=== PATIENT | female | born 1985 | race Two or more races ===

== ENCOUNTER 2024-09-09 22:59 | Emergency (ER) | payer MEDICAID, SELFPAY ==
[2024-09-09 23:00] VITALS: BMI 48.2
[2024-09-09 23:07] VITALS: BP 141/84; PULSE 104; RESP 18; TEMP 37.3; O2SAT 96
[2024-09-09] MEDS: DIAZEPAM 5 MG TABLET 10 MG PO (23:37)
[2024-09-10 00:12] LABS: Collection Type, Urine Clean Catch
--- NOTE | 2024-09-10 00:27 | PD.EDANX ---
ED Anxiety RME/HPI General Chief Complaint: General Adult/Misc Complain Stated Complaint: DOESNT FEEL NORMAL Time Seen by Provider: 09/09/24 23:13 Arrival date/time: 09/09/24 22:59 38F with history of anxiety (though undiagnosed) presents to ED with 1 day of not feeling normal. Symptoms including ab pain, dizziness, cough, body tingling/numbness and N/V. Separately, patient states she's been trying to have a baby for 9 years and is late on a period and would like a test. Limitations: no limitations Related Data Previous Rx's ?Medication ?Instructions ?Recorded acetaminophen 500 mg capsule 500 mg PO Q6H PRN pain #20 caps 06/12/18 prednisone 50 mg tablet 50 mg PO QDAY #5 tabs 06/12/18 ibuprofen 800 mg tablet 800 mg PO TID #30 tabs 03/07/19 ibuprofen 800 mg tablet 800 mg PO TID PRN pain #30 tabs 07/29/22 Allergies Allergy/AdvReac Type Severity Reaction Status Date / Time No Known Allergies Allergy Verified 09/09/24 23:02 Review of Systems Review of Systems Systems Reviewed: All systems reviewed, normal except as documented Constitutional Constitutional: Reports system reviewed and no additional complaints, except as documented, Denies fever(s) and Denies headache(s) ENT Ears, Nose, Mouth, and Throat: Denies disequilibrium and Denies headache(s) Cardiovascular Cardiovascular: Reports system reviewed and no additional complaints, except as documented, Denies chest pain and Denies dyspnea Respiratory Respiratory: Reports system reviewed and no additional complaints, except as documented, Reports as per HPI, Reports cough and Denies dyspnea Gastrointestinal Gastrointestinal: Reports system reviewed and no additional complaints, except as documented, Reports as per HPI, Reports abdominal pain, Reports nausea and Reports vomiting Musculoskeletal Musculoskeletal: Reports numbness and Reports tingling Neurologic Neurologic: Reports system reviewed and no additional complaints, except as documented, Reports as per HPI, Denies confusion, Denies disequilibrium, Denies headache(s), Reports numbness and Reports tingling Psychiatric Psychiatric: Denies confusion Past Medical History Past Medical History CARDIAC: Negative Congestive Heart Failure RESPIRATORY: Negative Chronic Obstructive Pulmonary Disease (COPD) GENITOURINARY: Negative Renal Disease ENDOCRINE: Negative Diabetes Mellitus Type 1 or Diabetes Mellitus Type 2 Social History SMOKING STATUS: Never smoker ED Exam General Limitations: Present no limitations General appearance: Present alert, in no apparent distress and anxious Head Head exam: Present atraumatic Eye Eye exam: Present normal appearance, PERRL and EOMI ENT ENT exam: Present normal exam, normal oropharynx and mucous membranes moist Neck Neck exam: Present normal inspection, full ROM and trachea midline Chest Chest inspection: Present normal inspection and symmetric chest wall rise Respiratory Respiratory exam: Present normal lung sounds bilaterally Cardiovascular Cardiovascular exam: Present regular rate, normal rhythm and normal heart sounds Abdominal Exam Abdominal exam: Present soft and normal bowel sounds Extremities Exam Extremities exam: Present normal inspection and full ROM Back Exam Back exam: Present normal inspection and full ROM Neurological Exam Neurological exam: Present alert, oriented X3 and CN II-XII intact Psychiatric Psychiatric exam: Present normal affect and normal mood Skin Skin exam: Present warm, dry, intact and normal color Course Quality Measures none Orders Category Date Time Status Drug Screen,Urine Stat Lab 09/10/24 00:00 Received HCG Qualitative,Urine Stat Lab 09/10/24 00:00 Received Urinalysis, C/S if Indicated Stat Lab 09/10/24 00:00 Received Diazepam [Valium] Med 09/09/24 23:14 Discontinued 10 mg PO X1 ONE Vital Signs Vital signs: Vital Signs Temperature 99.1 F 09/09/24 23:07 Pulse Rate 104 H 09/09/24 23:07 Respiratory Rate 18 09/09/24 23:07 Blood Pressure 141/84 H 09/09/24 23:07 Pulse Oximetry (%) 96 09/09/24 23:07 Oxygen Delivery Method Room Air 09/09/24 23:07 Anxiety MDM Narrative MDM Narrative: 38F with history of anxiety (though undiagnosed) presents to ED with 1 day of not feeling normal. Symptoms including ab pain, dizziness, cough, body tingling/numbness and N/V. Separately, patient states she's been trying to have a baby for 9 years and is late on a period and would like a test. Physical exam reveals normal pupil response and EOM. CN II-XII grossly intact. Clear lungs. Normal WOB. Gait normal. Patient is afebrile, alert, but anxious. Meds relieved symptoms. HCG +, which was patient was very excited for. Patient data External records reviewed:: [facility] previous records Clinical information provided by:: patient Social determinants that could affect healthcare access:: none Patient has the following chronic illnesses:: none How is presenting disease/condition affected by chronic disease/condition?: no chronic disease Evaluation data The following diagnostics were reviewed and interpreted by me:: lab results Lab and/or radiology exams considered but not ordered:: ordered Interpretation Summary: above Medications / Prescriptions Medications or Prescriptions considered but not ordered:: ordered Medication administrations:: Medication Administration History Discontinued Medications Diazepam (Diazepam 5 Mg Tablet) 10 mg PO X1 ONE Stop: 09/09/24 23:15 Last Admin: 09/09/24 23:37 Dose: 10 mg Documented By: Consultations Consultation(s) initiated? (list below): No Diagnosis Differential diagnosis anxiety: hyperventilation, panic disorder, acute anxiety and other (stress reaction and currently ) Most likely diagnosis given after review of the tests above:: stress reaction and currently Admission Indicated Admission indicated?: not indicated Admission Request Was there a request for admission?: No Disposition Plan Disposition Plan: Discharge Discharge Attestation Discharge Attestation: The patient and all family members were given an opportunity to ask questions and understood the discharge instructions. Discharge instructions specifically effects, indications for sooner follow up or return to the emergency department, and the expected course of current diagnosis. Patient condition: Stable Discharge Plan Plan Patient Disposition: HOME (Self Care) Discharge Disposition comment: Stable Prescriptions/Referrals Prescriptions/Med Rec: No Action prednisone 50 mg tablet 50 mg PO QDAY Qty: 5 0RF acetaminophen 500 mg capsule 500 mg PO Q6H PRN (Reason: pain) Qty: 20 0RF ibuprofen 800 mg tablet 800 mg PO TID Qty: 30 0RF ibuprofen 800 mg tablet 800 mg PO TID PRN (Reason: pain) Qty: 30 0RF Referrals: Lakeisha Aranda PA-C [Primary Care Provider] - In 1 week Problem List Clinical Impression: Stress reaction, Currently Patient/Caregiver Discharge Instructions Education Materials: Your Body's Response to Anxiety, First Trimester Additional Instructions: Please follow-up with PCP/OBGYN within 24-48 hours and return immediately if symptoms worsen. Print Language: [place] Stand Alone Forms: Patient Portal Info Letter WEST/JHONY Supervising Physician SOPHIE Supervising Physician: Dr. Bermudez
[2024-09-10 00:41] LABS: Amphetamine/Methamp Scrn,U Negative (Negative); Barbiturate Screen,Urine Negative (Negative); Benzodiazepines Screen,Urine Negative (Negative); Benzoylecgonine Screen, Ur Negative (Negative); Fentanyl Screen,Urine Negative (Negative); Opiate Screen,Urine Negative (Negative); THC Screen,Urine Negative (Negative)
[2024-09-10 01:00] LABS: HCG Qualitative,Urine Positive
[2024-09-10 01:10] LABS: Bilirubin,Urine 1+ (Negative); Blood,Urine Negative (Negative); Budding Yeast,Urine Present; Clarity,Urine Turbid (Clear/Hazy); Color,Urine Yellow (Lt Yel-Yel); Culture Indicated,Urine Not Indicated; Glucose, Urine Trace (Negative); Ketones,Urine Trace (Negative); Leukocyte Esterase,Urine Positive (Negative); Nitrite,Urine Negative (Negative); Protein,Urine 1+ (Neg - Trace); RBC,Urine 3 /hpf (0-3); Squamous Epithelial Cell,Urine 68 /hpf (0-5); WBC,Urine 3 /hpf (0-5)
== END 2024-09-10 01:38 | disposition home or self-care (01) ==
PROVIDERS: Physician Assistant; Emergency Provider Emergency Medicine; PCP Physician Assistant
DX: O99.340 Other mental disorders complicating pregnancy, unspecified trimester (principal); F43.9 Reaction to severe stress, unspecified; Z3A.00 Weeks of gestation of pregnancy not specified
CPT/HCPCS: 80307; 81001; 81025; 99283; A9270

== ENCOUNTER 2024-09-15 09:53 | Emergency (ER) | payer MEDICAID, SELFPAY ==
[2024-09-15 09:59] VITALS: BP 143/78; PULSE 109; RESP 18; TEMP 36.8; O2SAT 99; BMI 48.2
--- NOTE | 2024-09-15 10:06 | XR_ITS ---
Examination: OB Transvaginal ultrasound of the pelvis, complete Technique: Transvaginal sonographic images pelvis performed using worthy scale imaging Exam date and time: September 15, 2024 1050 hours INDICATIONS: Positive test last week with pelvic cramping beginning 2 days ago FINDINGS: Uterus 9.5 cm, pole 1.1 cm corresponds to 7 weeks 2 days gestational age Cardiac motion 153 BPM Adjacent subchorionic hemorrhage 10 x 12 x 8 mm Right ovary 2.3 cm arterial flow 17 mm x 15 mm cyst with internal echoes Left ovary obscured by bowel gas IMPRESSION: Viable intrauterine gestation 7 weeks 2 days Consider short-term follow-up pelvic sonography given the subchorionic hemorrhage.
[2024-09-15 10:46] LABS: Basophils % (Auto) 0 % (0-2.5); Eosinophils # (Auto) 0.2 Thou/mm3 (0.0-0.5); Eosinophils % (Auto) 2 % (0-10); Hematocrit 35.5 % (36.0-46.0); Immature Granulocytes % (Auto) 0 % (0-0); Immature Granulocytes Auto 0.02 Thou/mm3 (0.00-0.00); Lymphocytes # (Auto) 2.7 Thou/mm3 (1.0-4.8); Lymphocytes % (Auto) 29 % (10-50); Mean Corpuscular HGB Conc 33.8 g/dl (31.0-37.0); Mean Corpuscular Hemoglobin 28.8 pg (25.0-35.0); Mean Corpuscular Volume 85 fL (80-100); Monocytes # (Auto) 0.7 Thou/mm3 (0.0-0.8); Monocytes % (Auto) 7 % (0-12); Neutrophils # (Auto) 5.7 Thou/mm3 (1.8-7.7); Neutrophils % (Auto) 61 % (37-80); Nucleated Red Blood Cell % 0 /100 WBC (0); Platelet Count 271 Thou/mm3 (140-440); RDW Standard Deviation 42.8 fL (36.4-46.3); Red Blood Count 4.17 Miln/mm3 (4.00-5.20); White Blood Count 9.3 Thou/mm3 (3.6-11.0)
[2024-09-15 11:22] LABS: Alanine Aminotransferase 10 U/L (10-49); Albumin, Serum 3.9 gm/dL (3.5-5.0); Albumin/Globulin Ratio 1.3 (1.2-2.2); Alkaline Phosphatase 71 U/L (46-116); Anion Gap 11 (7-16); Aspartate Amino Transferase 12 U/L (0-34); BUN/Creatinine Ratio 11 Ratio (12-20); Bilirubin,Total 0.4 mg/dL (0.3-1.2); Blood Urea Nitrogen 9 mg/dL (9-23); Calcium 8.4 mg/dL (8.3-10.6); Calcium (Corrected) 8.5 mg/dL (8.5-10.1); Carbon Dioxide 21.2 mMol/L (20.0-31.0); Chloride 105 mMol/L (98-107); Creatinine (Component) 0.8 mg/dL (0.6-1.3); Estimated Creatinine Clearance 133.2 mL/min (>60); Globulin 2.9 gm/dL (2.3-3.5); Glucose 101 mg/dL (74-106); Osmolality,Calculated 272 (275-295); Potassium 3.7 mMol/L (3.4-5.1); Sodium 137 mMol/L (136-145); Total Protein 6.8 gm/dL (5.7-8.2); eGFR > 60 See Note
[2024-09-15 11:36] LABS: Beta HCG,Quantitative 61889 mIU/mL (<5.0)
[2024-09-15 11:54] LABS: Collection Type, Urine Clean Catch
[2024-09-15 12:06] LABS: Bacteria,Urine Rare; Bilirubin,Urine Negative (Negative); Blood,Urine Negative (Negative); Color,Urine Yellow (Lt Yel-Yel); Culture Indicated,Urine Not Indicated; Glucose, Urine Negative (Negative); Hyaline Casts,Urine < 1 /hpf (0-1); Ketones,Urine Negative (Negative); Leukocyte Esterase,Urine Negative (Negative); Nitrite,Urine Negative (Negative); Protein,Urine Trace (Neg - Trace); RBC,Urine 4 /hpf (0-3); Specific Gravity,Urine 1.034 (1.001-1.035); Squamous Epithelial Cell,Urine 16 /hpf (0-5); WBC,Urine 2 /hpf (0-5)
[2024-09-15 12:13] LABS: Clarity,Urine Hazy (Clear/Hazy)
--- NOTE | 2024-09-15 12:28 | EDNOTE_ITS ---
ED Back Injury Pain RME/HPI General Chief Complaint: Back Pain/Injury Stated Complaint: Cramping, back pain (recently ) Time Seen by Provider: 09/15/24 09:55 Arrival date/time: 09/15/24 09:53 38-year-old female presents to the emergency department today for complaints of pelvic pain and lower back pain patient reports no fever nausea or vomiting. Patient reports no saddle esthesia no loss of bowel or bladder patient walks with steady gait patient does report she is Limitations: no limitations Related Data Previous Rx's ?Medication ?Instructions ?Recorded acetaminophen 500 mg capsule 500 mg PO Q6H PRN pain #2 0 caps 06/12/18 prednisone 50 mg tablet 50 mg PO QDAY #5 tabs ibuprofen 800 mg tablet 800 mg PO TID #30 tabs 03/07 ibuprofen 800 mg tablet 800 mg PO TID PRN pain #30 t abs 07/29/22 Allergies Allergy/AdvReac Type Severity Reaction Status Date / Time No Known Allergies Allergy Verified 09/15/24 09:55 Review of Systems Review of Systems Systems Reviewed: All systems reviewed, normal except as documented Constitutional Constitutional: Reports system reviewed and no additional complaints, except as documented, Denies fever(s) and Denies headache(s) Eyes Eyes: Reports system reviewed and no additional complaints, except as documented and Denies blurry vision ENT Ears, Nose, Mouth, and Throat: Reports system reviewed and no additional complaints, except as documented, Denies headache(s), Denies nasal congestion and Denies nasal discharge Cardiovascular Cardiovascular: Reports system reviewed and no additional complaints, except as documented, Denies chest pain and Denies dyspnea Respiratory Respiratory: Reports system reviewed and no additional complaints, except as documented, Denies chest congestion, Denies cough and Denies dyspnea Gastrointestinal Gastrointestinal: Reports system reviewed and no additional complaints, except as documented and Denies abdominal pain Genitourinary Genitourinary: Reports system reviewed and no additional complaints, except as documented, Denies flank pain and Reports pelvic pain Musculoskeletal Musculoskeletal: Reports system reviewed and no additional complaints, except as documented and Reports back pain Integumentary/Breasts Skin/Breast: Reports system reviewed and no additional complaints, except as documented and Denies rash Neurologic Neurologic: Reports system reviewed and no additional complaints, except as documented, Reports as per HPI and Denies headache(s) Past Medical History Past Medical History CARDIAC: Negative Congestive Heart Failure RESPIRATORY: Negative Chronic Obstructive Pulmonary Disease (COPD) GENITOURINARY: Negative Renal Disease ENDOCRINE: Negative Diabetes Mellitus Type 1 or Diabetes Mellitus Type 2 Social History SMOKING STATUS: Never smoker ED Exam General Limitations: Present no limitations General appearance: Present alert and in no apparent distress Head Head exam: Present atraumatic, normocephalic and normal inspection Eye Eye exam: Present normal appearance, PERRL and EOMI; Absent conjunctival injection ENT ENT exam: Present normal exam, normal oropharynx and mucous membranes moist Neck Neck exam: Present normal inspection, full ROM and trachea midline Chest Chest inspection: Present normal inspection and symmetric chest wall rise Respiratory Respiratory exam: Present normal lung sounds bilaterally; Absent respiratory distress Cardiovascular Cardiovascular exam: Present regular rate, normal rhythm and normal heart sounds Abdominal Exam Abdominal exam: Present soft and normal bowel sounds; Absent distention, tenderness, guarding, rebound or rigidity Extremities Exam Extremities exam: Present normal inspection and full ROM Back Exam Back exam: Present normal inspection and full ROM Neurological Exam Neurological exam: Present alert, oriented X3 and CN II-XII intact Psychiatric Psychiatric exam: Present normal affect and normal mood Skin Skin exam: Present warm, dry, intact and normal color Course Quality Measures none Orders Category Date Time Status US OB transvaginal Stat Exams 09/15/24 10:06 Completed ABO/RH Type Stat Lab 09/15/24 10:36 Completed Beta HCG,Quantitative Stat Lab 09/15/24 10:36 Completed CBC Stat Lab 09/15/24 10:36 Completed Comprehensive Metabolic Panel Stat Lab 09/15/24 10:36 Completed UA, C/S IF [Urinalysis, C/S if Indicated] Stat Lab 09/15/24 11:45 Completed Vital Signs Vital signs: Vital Signs Temperature 98.2 F 09/15/24 09:59 Pulse Rate 109 H 09/15/24 09:59 Respiratory Rate 18 09/15/24 09:59 Blood Pressure 143/78 H 09/15/24 09:59 Pulse Oximetry (%) 99 09/15/24 09:59 Oxygen Delivery Method Room Air 09/15/24 09:59 O2 saturation 99% on room air within normal limits Back Pain / Injury MDM Narrative MDM Narrative:: 38-year-old female presents to the emergency department today for complaints of pelvic pain and lower back pain patient reports no fever nausea or vomiting. Patient reports no saddle esthesia no loss of bowel or bladder patient walks with steady gait patient does report she is On exam patient well-appearing patient does not appear toxic no acute distress Lab work and imaging obtained no acute emergent findings noted Patient appears to have viable at this time Patient discharged home in no distress to follow-up with primary care doctor in the next 24 to 48 hours and for any worsening symptoms to return to the ER immediately Patient data External records reviewed:: [facility] previous records Clinical information provided by:: patient Social determinants that could affect healthcare access:: none Patient has the following chronic illnesses:: None How is presenting disease/condition affected by chronic disease/condition?: no chronic disease Evaluation data The following diagnostics were reviewed and interpreted by me:: other (specify) (N/A) Lab and/or radiology exams considered but not ordered:: Consider not ordered Interpretation Summary: N/A Medications / Prescriptions Medications or Prescriptions considered but not ordered:: Given Medication administrations:: Given Consultations Consultation(s) initiated? (list below): No Diagnosis Differential diagnosis back pain/injury: lumbar radiculopathy, strain of lumbar region, renal colic and pyelonephritis Most likely diagnosis given after review of the tests above:: Back pain Admission Indicated Admission indicated?: not indicated Admission Request Was there a request for admission?: No Disposition Plan Disposition Plan: Discharge Discharge Attestation Discharge Attestation: The patient and all family members were given an opportunity to ask questions and understood the discharge instructions. Discharge instructions specifically effects, indications for sooner follow up or return to the emergency department, and the expected course of current diagnosis. Patient condition: Stable Discharge Plan Plan Patient Disposition: HOME (Self Care) Discharge Disposition comment: stable Prescriptions/Referrals Prescriptions/Med Rec: No Action prednisone 50 mg tablet 50 mg PO QDAY Qty: 5 0RF acetaminophen 500 mg capsule 500 mg PO Q6H PRN (Reason: pain) Qty: 20 0RF ibuprofen 800 mg tablet 800 mg PO TID Qty: 30 0RF ibuprofen 800 mg tablet 800 mg PO TID PRN (Reason: pain) Qty: 30 0RF Referrals: Lakeisha Aranda PA-C [Primary Care Provider] - 09/16/24 Problem List Clinical Impression: Subchorionic bleed Patient/Caregiver Discharge Instructions Education Materials: Bleeding During Early Additional Instructions: Please follow up with your primary care doctor in the next 24-48hrs for any worsening symptoms return here immediately Print Language: Turkmen Stand Alone Forms: Lara Award Info., Patient Portal Info Letter PA/BORING MACHINE OPERATOR DOUBLE END Supervising Physician PA/BORING MACHINE OPERATOR DOUBLE END Supervising Physician: dr cheek
== END 2024-09-15 12:51 | disposition home or self-care (01) ==
PROVIDERS: Nurse Practitioner Primary Care; Emergency Provider Emergency Medicine; PCP Physician Assistant
DX: O20.9 Hemorrhage in early pregnancy, unspecified (principal); Z3A.01 Less than 8 weeks gestation of pregnancy
CPT/HCPCS: 36415; 76817; 80053; 81001; 84702; 85025; 86900; 86901; 99284

== ENCOUNTER 2024-10-13 16:10 | Emergency (ER) | payer MEDICAID, SELFPAY ==
[2024-10-13 16:23] VITALS: BP 131/85; PULSE 109; RESP 18; TEMP 37; O2SAT 98; BMI 52.0
--- NOTE | 2024-10-13 16:42 | EDRME_ITS ---
Rapid Medical Screening Exam RME Arrival date/time: 10/13/24 16:10 38-year-old female with no known medical history presents to the emergency room with a chief complaint of abdominal cramping. Patient is currently 11 weeks . Patient states she was getting an ultrasound in [place] and they were unable to hear the heartbeat. I have greeted and performed a focused initial assessment of this patient. A comprehensive ED assessment and evaluation of the patient, analysis of all test results, and completion of the medical decision making process will be conducted by additional ED providers. Chief Complaint: OB/Uterine Contractions Time Seen by Provider: 10/13/24 16:26 Vital signs: Vital Signs Temperature 98.6 F 10/13/24 16:23 Pulse Rate 109 H 10/13/24 16:23 Respiratory Rate 18 10/13/24 16:23 Blood Pressure 131/85 H 10/13/24 16:23 Pulse Oximetry (%) 98 10/13/24 16:23 Oxygen Delivery Method Room Air 10/13/24 16:23 Vital signs reviewed by provider: Yes
--- NOTE | 2024-10-13 16:42 | XR_ITS ---
Examination: Complete OB ultrasound, less than 14 weeks, transabdominal Date and time of exam: October 13, 2024, 1711 hours INDICATIONS: No heart tones on ultrasound examination earlier today Technique: Obstetrical ultrasound images less than 14 weeks performed via transabdominal imaging Findings: Uterus 10.6 cm, pole 2.8 cm corresponds to 9 weeks 4 days gestational age No cardiac motion Right ovary 2.1 cm arterial flow Left ovary obscured by bowel gas IMPRESSION: demise
[2024-10-13 17:09] LABS: Collection Type, Urine Clean Catch; RBC,Urine 0 /hpf (0-3); WBC,Urine 0 /hpf (0-5)
[2024-10-13 17:16] LABS: Basophils # (Auto) 0.1 Thou/mm3 (0.0-0.2); Basophils % (Auto) 1 % (0-2.5); Eosinophils # (Auto) 0.3 Thou/mm3 (0.0-0.5); Eosinophils % (Auto) 3 % (0-10); Hematocrit 36.9 % (36.0-46.0); Hemoglobin 12.5 g/dL (12.0-16.0); Immature Granulocytes Auto 0.02 Thou/mm3 (0.00-0.00); Lymphocytes # (Auto) 2.0 Thou/mm3 (1.0-4.8); Lymphocytes % (Auto) 19 % (10-50); Mean Corpuscular HGB Conc 33.9 g/dl (31.0-37.0); Mean Corpuscular Hemoglobin 28.9 pg (25.0-35.0); Mean Corpuscular Volume 85 fL (80-100); Monocytes # (Auto) 0.5 Thou/mm3 (0.0-0.8); Monocytes % (Auto) 5 % (0-12); Neutrophils # (Auto) 7.6 Thou/mm3 (1.8-7.7); Neutrophils % (Auto) 72 % (37-80); Nucleated Red Blood Cell # 0.00 Thou/mm3 (0.00-0.00); Nucleated Red Blood Cell % 0 /100 WBC (0); Platelet Count 287 Thou/mm3 (140-440); RDW Standard Deviation 43.5 fL (36.4-46.3); Red Blood Count 4.33 Miln/mm3 (4.00-5.20); White Blood Count 10.5 Thou/mm3 (3.6-11.0)
[2024-10-13 17:41] LABS: Alanine Aminotransferase 7 U/L (10-49); Albumin, Serum 4.1 gm/dL (3.5-5.0); Albumin/Globulin Ratio 1.2 (1.2-2.2); Alkaline Phosphatase 71 U/L (46-116); Anion Gap 8 (7-16); Aspartate Amino Transferase 14 U/L (0-34); BUN/Creatinine Ratio 11 Ratio (12-20); Bilirubin,Total 0.4 mg/dL (0.3-1.2); Blood Urea Nitrogen 10 mg/dL (9-23); Calcium 9.5 mg/dL (8.3-10.6); Calcium (Corrected) 9.5 mg/dL (8.5-10.1); Carbon Dioxide 22.6 mMol/L (20.0-31.0); Chloride 108 mMol/L (98-107); Creatinine (Component) 0.9 mg/dL (0.6-1.3); Estimated Creatinine Clearance 119.8 mL/min (>60); Globulin 3.4 gm/dL (2.3-3.5); Glucose 102 mg/dL (74-106); Osmolality,Calculated 276 (275-295); Potassium 4.3 mMol/L (3.4-5.1); Sodium 139 mMol/L (136-145); Total Protein 7.5 gm/dL (5.7-8.2); eGFR > 60 See Note
[2024-10-13 17:51] LABS: Beta HCG,Quantitative 6204 mIU/mL (<5.0)
[2024-10-13 18:01] LABS: Bacteria,Urine Rare; Bilirubin,Urine 1+ (Negative); Blood,Urine Negative (Negative); Clarity,Urine Turbid (Clear/Hazy); Color,Urine Yellow (Lt Yel-Yel); Glucose, Urine Negative (Negative); Ketones,Urine Trace (Negative); Leukocyte Esterase,Urine Negative (Negative); Nitrite,Urine Negative (Negative); PH,Urine 6.0 (5.0-7.0); Protein,Urine 1+ (Neg - Trace); Specific Gravity,Urine 1.040 (1.001-1.035); Squamous Epithelial Cell,Urine 10 /hpf (0-5); Urobilinogen,Urine 3.0 mg/dL (0.0-1.0)
[2024-10-13 18:54] VITALS: BP 148/82; PULSE 100; RESP 18; TEMP 36.7; O2SAT 98
--- NOTE | 2024-10-13 19:03 | PD.EDPREG ---
ED OB Contraction Preg RMI/HPI General Chief complaint: OB/Uterine Contractions Stated complaint: NO HEARTBEAT Time Seen by Provider: 10/13/24 16:26 Source: patient Arrival date/time: 10/13/24 16:10 Mode of arrival: ambulatory Limitations: no limitations RME / HPI RME / HPI Narrative: 10/13/24 16:10 38-year-old female with no known medical history presents to the emergency room with a chief complaint of abdominal cramping. Patient is currently 11 weeks . Patient states she was getting an ultrasound in [place] and they were unable to hear the heartbeat. I have greeted and performed a focused initial assessment of this patient. A comprehensive ED assessment and evaluation of the patient, analysis of all test results, and completion of the medical decision making process will be conducted by additional ED providers. Dr. Nix?s Main ED Evaluation: 38-year-old female with no significant past medical history presents to the Emergency Department with a chief complaint of abdominal cramping. She reports she is currently 11 weeks . Earlier today, the patient underwent an ultrasound at an outpatient facility in [place], where she was informed that they were unable to detect a heartbeat. This finding prompted her visit to the ED for further evaluation and confirmation. She describes her abdominal cramping as mild to moderate in severity, intermittent, and primarily located in the lower abdomen. She denies vaginal bleeding, fluid leakage, fever, chills, nausea, vomiting, or syncope at this time. Patient is seeking further clarification regarding her status and the source of her abdominal discomfort. Evaluation and imaging are underway to assess viability. Related Data Previous Rx's ?Medication ?Instructions ?Recorded acetaminophen 500 mg capsule 500 mg PO Q6H PRN pain #20 caps 06/12/18 prednisone 50 mg tablet 50 mg PO QDAY #5 tabs 06/12/18 ibuprofen 800 mg tablet 800 mg PO TID #30 tabs 03/07/19 ibuprofen 800 mg tablet 800 mg PO TID PRN pain #30 tabs 07/29/22 Allergies Allergy/AdvReac Type Severity Reaction Status Date / Time No Known Allergies Allergy Verified 09/15/24 09:55 Review of Systems Review of Systems Systems Reviewed: All systems reviewed, normal except as documented Past Medical History Past Medical History CARDIAC: Negative Congestive Heart Failure RESPIRATORY: Negative Chronic Obstructive Pulmonary Disease (COPD) GENITOURINARY: Negative Renal Disease ENDOCRINE: Negative Diabetes Mellitus Type 1 or Diabetes Mellitus Type 2 Social History SMOKING STATUS: Never smoker ED Exam General Limitations: Present no limitations General appearance: Present alert and in no apparent distress Head Head exam: Present atraumatic Eye Eye exam: Present normal appearance, PERRL and EOMI ENT ENT exam: Present normal exam, normal oropharynx and mucous membranes moist Neck Neck exam: Present normal inspection, full ROM and trachea midline Chest Chest inspection: Present normal inspection and symmetric chest wall rise Respiratory Respiratory exam: Present normal lung sounds bilaterally Cardiovascular Cardiovascular exam: Present regular rate, normal rhythm and normal heart sounds Abdominal Exam Abdominal exam: Present soft and normal bowel sounds Extremities Exam Extremities exam: Present normal inspection and full ROM Back Exam Back exam: Present normal inspection and full ROM Neurological Exam Neurological exam: Present alert, oriented X3 and CN II-XII intact Psychiatric Psychiatric exam: Present normal affect and normal mood Skin Skin exam: Present warm, dry, intact and normal color Course Quality Measures none Orders Category Date Time Status US OB <= 14 weeks fetus Stat Exams 10/13/24 16:42 Completed ABO/RH Type Stat Lab 10/13/24 17:01 Completed Beta HCG,Quantitative Stat Lab 10/13/24 17:01 Completed CBC Stat Lab 10/13/24 17:01 Completed CMP [Comprehensive Metabolic Panel] Stat Lab 10/13/24 17:01 Completed UA [Urinalysis] Stat Lab 10/13/24 17:00 Completed Vital Signs Vital signs: Vital Signs Temperature 98.6 F 10/13/24 16:23 Pulse Rate 109 H 10/13/24 16:23 Respiratory Rate 18 10/13/24 16:23 Blood Pressure 131/85 H 10/13/24 16:23 Pulse Oximetry (%) 98 10/13/24 16:23 Oxygen Delivery Method Room Air 10/13/24 16:23 OB/Uterine Contractions MDM Narrative MDM Narrative:: 38-year-old female at approximately 11 weeks gestation, presenting with abdominal cramping and concern for possible complications following an outpatient ultrasound earlier today where no heartbeat was detected. On ED evaluation, the patient reports mild to moderate lower abdominal cramping but denies vaginal bleeding, fluid leakage, fever, chills, nausea, vomiting, or syncope. #Differential diagnosis includes: Threatened miscarriage Missed Normal early with difficulty detecting heartbeat due to gestational age or positioning [id number] causes of abdominal pain (e.g., constipation, UTI) #Workup initiated includes: ultrasound to assess viability Quantitative serum beta-hCG, CBC, CMP, UA orered Emotional support provided, and further management will be guided by imaging and laboratory results. 1901: Findings today are consistent with demise. The patient has been counseled regarding the diagnosis, expected symptoms, and next steps, including follow-up with her obstetric provider for further management options. The patient remains hemodynamically stable at this time and is safe for discharge with detailed return precautions. She was thoroughly advised to return to the Emergency Department immediately for any of the following: -Heavy vaginal bleeding (defined as soaking more than 2 pads per hour for 2 consecutive hours) -Passing large clots or tissue -Severe abdominal pain or cramping -Fever or chills -Dizziness, weakness, or feeling faint -Any other concerning symptoms Patient verbalized understanding of the discharge instructions and the importance of prompt follow-up with her SUPERVISOR [employer]. Emotional support and resources offered as appropriate. Scribe Attestation: I, Bi Angulo, am scribing for and in the presence of Dr. Nix. Provider Notation: Although this document has been carefully reviewed, there may still be some phonetic and other typographical errors. These errors are purely grammatical due to imperfections in the software program and should not be construed in any way to compromise the substance of the patient's medical care during this visit. Patient data External records reviewed:: [facility] previous records Clinical information provided by:: patient Social determinants that could affect healthcare access:: none Patient has the following chronic illnesses:: See PMH How is presenting disease/condition affected by chronic disease/condition?: uneffected by Evaluation data The following diagnostics were reviewed and interpreted by me:: lab results and radiology exam(s) Lab and/or radiology exams considered but not ordered:: n/a Interpretation Summary: Examination: Complete OB ultrasound, less than 14 weeks, transabdominal Date and time of exam: October 13, 2024, 1711 hours INDICATIONS: No heart tones on ultrasound examination earlier today Technique: Obstetrical ultrasound images less than 14 weeks performed via transabdominal imaging Findings: Uterus 10.6 cm, pole 2.8 cm corresponds to 9 weeks 4 days gestational age No cardiac motion Right ovary 2.1 cm arterial flow Left ovary obscured by bowel gas IMPRESSION: demise Dictated By: Denny Hilton MD Medications / Prescriptions Medications or Prescriptions considered but not ordered:: n/a Medication administrations:: as above, if any Consultations Consultation(s) initiated? (list below): No Diagnosis OB Contractions Differential Diagnosis: other Most likely diagnosis given after review of the tests above:: demise Admission Indicated Admission indicated?: not indicated Explain why admission is indicated or not indicated:: No significant findings indicating in patient admission. Admission Request Was there a request for admission?: No Disposition Plan Disposition Plan: Discharge Discharge Attestation Discharge Attestation: The patient and all family members were given an opportunity to ask questions and understood the discharge instructions. Discharge instructions specifically effects, indications for sooner follow up or return to the emergency department, and the expected course of current diagnosis. Patient condition: Stable Discharge Plan Plan Patient Disposition: HOME (Self Care) Prescriptions/Referrals Prescriptions/Med Rec: No Action prednisone 50 mg tablet 50 mg PO QDAY Qty: 5 0RF acetaminophen 500 mg capsule 500 mg PO Q6H PRN (Reason: pain) Qty: 20 0RF ibuprofen 800 mg tablet 800 mg PO TID Qty: 30 0RF ibuprofen 800 mg tablet 800 mg PO TID PRN (Reason: pain) Qty: 30 0RF Referrals: Otis Culver MD [Physician] - 10/14/24 (Call Dr Culver tomorrow so that you can get a follow-up appointment in the next few days.) No Primary/Family,Physician [Primary Care Provider] - In 1 week Problem List Clinical Impression: demise Patient/Caregiver Discharge Instructions Education Materials: Loss Grieving, ED Missed Miscarriage Additional Instructions: Return to the emergency department for worsening symptoms, you feel like you are having clots, you are changing your pad more than 2 times for 2 hours, or any other concerns Print Language: Ethiopian Stand Alone Forms: [facility] Award Info., Patient Portal Info Letter
== END 2024-10-13 19:10 | disposition home or self-care (01) ==
PROVIDERS: Nurse Practitioner Family; Emergency Provider Emergency Medicine
DX: O02.1 Missed abortion (principal)
CPT/HCPCS: 36415; 76801; 80053; 81001; 84702; 85025; 86900; 86901; 99284

== ENCOUNTER 2024-11-01 17:38 | Emergency (ER) | payer MEDICAID, SELFPAY ==
--- NOTE | 2024-11-01 17:54 | XR_ITS ---
Examination: OB Transvaginal ultrasound of the pelvis, complete Technique: Transvaginal sonographic images pelvis performed using worthy scale imaging Exam date and time: November 01, 2024 1900 hours INDICATIONS: Severe pelvic pain beginning 2:00 AM this morning. FINDINGS: Uterus 11.8 cm CRL 3.0 cm corresponds to 9 weeks 6 days gestational age No cardiac motion Ovaries obscured by bowel gas IMPRESSION: demise.
[2024-11-01 17:55] VITALS: BP 128/89; PULSE 78; RESP 17; TEMP 37; O2SAT 97
--- NOTE | 2024-11-01 17:55 | PD.EDRME ---
Rapid Medical Screening Exam RME Arrival date/time: 11/01/24 17:38 39-year-old female with no known medical history presents to the emergency room with a chief complaint of vaginal bleeding. Patient states she is going through a miscarriage and was told by her SUPERVISOR [employer]PA[employer] if her bleeding gets worse to come to the emergency room. I have greeted and performed a focused initial assessment of this patient. A comprehensive ED assessment and evaluation of the patient, analysis of all test results, and completion of the medical decision making process will be conducted by additional ED providers. Chief Complaint: General Adult/Misc Complain Time Seen by Provider: 11/01/24 17:52 Vital signs reviewed by provider: Yes
[2024-11-01 18:19] LABS: Basophils # (Auto) 0.0 Thou/mm3 (0.0-0.2); Basophils % (Auto) 1 % (0-2.5); Eosinophils # (Auto) 0.1 Thou/mm3 (0.0-0.5); Eosinophils % (Auto) 1 % (0-10); Hematocrit 34.4 % (36.0-46.0); Hemoglobin 11.3 g/dL (12.0-16.0); Immature Granulocytes Auto 0.02 Thou/mm3 (0.00-0.00); Lymphocytes # (Auto) 2.1 Thou/mm3 (1.0-4.8); Lymphocytes % (Auto) 24 % (10-50); Mean Corpuscular HGB Conc 32.8 g/dl (31.0-37.0); Mean Corpuscular Hemoglobin 28.7 pg (25.0-35.0); Mean Corpuscular Volume 87 fL (80-100); Monocytes # (Auto) 0.6 Thou/mm3 (0.0-0.8); Monocytes % (Auto) 6 % (0-12); Neutrophils # (Auto) 6.0 Thou/mm3 (1.8-7.7); Neutrophils % (Auto) 68 % (37-80); Nucleated Red Blood Cell # 0.00 Thou/mm3 (0.00-0.00); Nucleated Red Blood Cell % 0 /100 WBC (0); Platelet Count 269 Thou/mm3 (140-440); RDW Standard Deviation 44.8 fL (36.4-46.3); Red Blood Count 3.94 Miln/mm3 (4.00-5.20); White Blood Count 8.8 Thou/mm3 (3.6-11.0)
[2024-11-01 18:38] LABS: Alanine Aminotransferase 7 U/L (10-49); Albumin, Serum 4.1 gm/dL (3.5-5.0); Albumin/Globulin Ratio 1.6 (1.2-2.2); Alkaline Phosphatase 80 U/L (46-116); Anion Gap 8 (7-16); Aspartate Amino Transferase 14 U/L (0-34); BUN/Creatinine Ratio 14 Ratio (12-20); Beta HCG,Quantitative 106 mIU/mL (<5.0); Bilirubin,Total 0.3 mg/dL (0.3-1.2); Blood Urea Nitrogen 10 mg/dL (9-23); Calcium 9.4 mg/dL (8.3-10.6); Calcium (Corrected) 9.4 mg/dL (8.5-10.1); Carbon Dioxide 26.5 mMol/L (20.0-31.0); Chloride 107 mMol/L (98-107); Creatinine (Component) 0.7 mg/dL (0.6-1.3); Estimated Creatinine Clearance 154.0 mL/min (>60); Globulin 2.5 gm/dL (2.3-3.5); Glucose 87 mg/dL (74-106); Osmolality,Calculated 279 (275-295); Potassium 4.0 mMol/L (3.4-5.1); Sodium 141 mMol/L (136-145); Total Protein 6.6 gm/dL (5.7-8.2); eGFR > 60 See Note
[2024-11-01 19:39] LABS: Collection Type, Urine Clean Catch
[2024-11-01 19:46] LABS: Amorphous Crystals,Urine Present (Absent); Bilirubin,Urine Negative (Negative); Blood,Urine 3+ (Negative); Clarity,Urine Turbid (Clear/Hazy); Color,Urine Yellow (Lt Yel-Yel); Glucose, Urine Negative (Negative); Ketones,Urine Negative (Negative); Leukocyte Esterase,Urine Positive (Negative); Nitrite,Urine Negative (Negative); PH,Urine 6.0 (5.0-7.0); Protein,Urine 1+ (Neg - Trace); RBC,Urine 3277 /hpf (0-3); Specific Gravity,Urine 1.035 (1.001-1.035); Squamous Epithelial Cell,Urine 5 /hpf (0-5); Urobilinogen,Urine Negative mg/dL (0.0-1.0); WBC,Urine 7 /hpf (0-5)
--- NOTE | 2024-11-01 22:33 | PD.EDVAGBL ---
ED OB Contraction Preg RMI/HPI General Chief complaint: General Adult/Misc Complain Stated complaint: MISCARRAGE, TERRIBLE PAIN Time Seen by Provider: 11/01/24 17:52 Arrival date/time: 11/01/24 17:38 RME / HPI RME / HPI Narrative: 11/01/24 17:38 39-year-old female with no known medical history presents to the emergency room with a chief complaint of vaginal bleeding. 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 I have greeted and performed a focused initial assessment of this patient. A comprehensive ED assessment and evaluation of the patient, analysis of all test results, and completion of the medical decision making process will be conducted by additional ED providers. --------- Dr. Nelson?s Main ED Evaluation: 39yo female presents to the ED for complaints of lower back pain and vaginal bleeding. Patient states she was told she was having a miscarriage last month and had recent follow-up with her AIRLINE PILOT FLIGHT INSTRUCTOR due to having lower back pain that radiates to her lower abdomen and vaginal bleeding. Patient states she took 2 prescribed Mitchells at home yesterday without improvement of her pain and it persisted, so she came in for evaluation. Patient denies any fever, chills, dysuria or any other associated symptoms. NKA. Related Data Previous Rx's ?Medication ?Instructions ?Recorded acetaminophen 500 mg capsule 500 mg PO Q6H PRN pain #20 caps 06/12/18 prednisone 50 mg tablet 50 mg PO QDAY #5 tabs 06/12/18 ibuprofen 800 mg tablet 800 mg PO TID #30 tabs 03/07/19 ibuprofen 800 mg tablet 800 mg PO TID PRN pain #30 tabs 07/29/22 Allergies Allergy/AdvReac Type Severity Reaction Status Date / Time No Known Allergies Allergy Verified 11/01/24 17:41 Review of Systems Review of Systems Systems Reviewed: All systems reviewed, normal except as documented Past Medical History Past Medical History CARDIAC: Negative Congestive Heart Failure RESPIRATORY: Negative Chronic Obstructive Pulmonary Disease (COPD) GENITOURINARY: Negative Renal Disease ENDOCRINE: Negative Diabetes Mellitus Type 1 or Diabetes Mellitus Type 2 Social History SMOKING STATUS: Never smoker ED Exam Narrative Physical exam: GENERAL APPEARANCE: alert and oriented x 4, well-developed, well-nourished, no acute distress VITALS: All vitals were reviewed and the pulse ox is 97% on room air, which is normal according to my interpretation. HEENT: Normocephalic, atraumatic; pupils equal, round, reactive to light; EOMI; mucous membranes pink, moist; oropharynx clear NECK: Supple LUNGS: CTABL; no wheezes, no rales, no rhonchi HEART: Regular rate, regular rhythm; normal S1, S2; no murmurs ABDOMEN: non distended; normal BS; soft, suprapubic tenderness, no guarding, no rebound; no masses, no organomegaly, no hernia BACK: no CVA tenderness EXTREMITIES: atraumatic; no edema NEUROLOGIC: awake; alert and oriented x4; cranial nerves II-XII grossly intact; no focal sensory or motor deficits PSYCHIATRIC: appropriate mood and affect SKIN: warm, dry, normal color; no rashes Course Quality Measures none Orders Category Date Time Status US OB transvaginal Stat Exams 11/01/24 17:54 Completed ABO/RH Type Stat Lab 11/01/24 18:05 Completed Beta HCG,Quantitative Stat Lab 11/01/24 18:05 Completed CBC Stat Lab 11/01/24 18:05 Completed CMP [Comprehensive Metabolic Panel] Stat Lab 11/01/24 18:05 Completed UA [Urinalysis] Stat Lab 11/01/24 19:32 Completed HYDROcodone*/APAP 5/325 [Mitchells 5/325] Med 11/01/24 22:47 Once 1 tab PO X1 ONE Ketorolac Inj [Toradol Inj] Med 11/01/24 22:33 Pending 30 mg IM X1 ONE Vital Signs Vital signs: Vital Signs Temperature 98.6 F 11/01/24 17:55 Pulse Rate 78 11/01/24 17:55 Respiratory Rate 17 11/01/24 17:55 Blood Pressure 128/89 H 11/01/24 17:55 Pulse Oximetry (%) 97 11/01/24 17:55 Oxygen Delivery Method Room Air 11/01/24 17:55 Vaginal Bleeding MDM Narrative MDM Narrative: Scribe Attestation: 11/01/24 - Francy Russell am scribing for and in the presence of Dr. Nelson. Patient data External records reviewed:: [facility] previous records (Per chart review, patient was seen here on 10/13/24 for demise.) Clinical information provided by:: patient Social determinants that could affect healthcare access:: none Patient has the following chronic illnesses:: none How is presenting disease/condition affected by chronic disease/condition?: no chronic disease Evaluation data The following diagnostics were reviewed and interpreted by me:: lab results and radiology exam(s) Lab and/or radiology exams considered but not ordered:: none Interpretation Summary: CBC normal, CMP normal, UA remarkable for 3277 RBCs. [place] [facility] Report Signed Patient: MAURA CAROLINA Record#: [id number] Birthdate: 1985 Age/Sex: 39 / F Location: [facility] Attending Dr: Ordering Physician: Lenny Caba Date of Service: 11/01/24 Procedure(s): US OB transvaginal Accession Number(s): [id number] cc: Lenny Caba; Denny Hilton MD; Beatris Carrillo MD~ Examination: OB Transvaginal ultrasound of the pelvis, complete Technique: Transvaginal sonographic images pelvis performed using worthy scale imaging Exam date and time: November 01, 2024 1900 hours INDICATIONS: Severe pelvic pain beginning 2:00 AM this morning. FINDINGS: Uterus 11.8 cm CRL 3.0 cm corresponds to 9 weeks 6 days gestational age No cardiac motion Ovaries obscured by bowel gas IMPRESSION: demise. Dictated By: Denny Hilton MD Signed By: <Electronically signed by Denny Hilton MD in OV> 11/01/24 2111 Medications / Prescriptions Medications or Prescriptions considered but not ordered:: none Medication administrations:: Medication Administration History Hydrocodone Bitart/Acetaminophen (Hydrocodone/Apap 5/325 Tablet) 1 tab PO X1 ONE Stop: 11/01/24 22:48 Ketorolac Tromethamine (Ketorolac Inj 30 Mg/Ml Vial) 30 mg IM X1 ONE Stop: 11/01/24 22:34 see above Consultations Consultation(s) initiated? (list below): No Diagnosis Vaginal Bleeding Differential Diagnosis: other (UTI, kidney stone, miscarriage, chorioamnionitis) Most likely diagnosis given after review of the tests above:: see clinical impression below Admission Indicated Admission indicated?: not indicated Admission Request Was there a request for admission?: No Disposition Plan Disposition Plan: Discharge Discharge Attestation Discharge Attestation: The patient and all family members were given an opportunity to ask questions and understood the discharge instructions. Discharge instructions specifically effects, indications for sooner follow up or return to the emergency department, and the expected course of current diagnosis. Patient condition: Stable Discharge Plan Plan Patient Disposition: HOME (Self Care) Prescriptions/Referrals Prescriptions/Med Rec: No Action prednisone 50 mg tablet 50 mg PO QDAY Qty: 5 0RF acetaminophen 500 mg capsule 500 mg PO Q6H PRN (Reason: pain) Qty: 20 0RF ibuprofen 800 mg tablet 800 mg PO TID Qty: 30 0RF ibuprofen 800 mg tablet 800 mg PO TID PRN (Reason: pain) Qty: 30 0RF Referrals: Beatris Carrillo MD [Primary Care Provider] - In 1 week Problem List Clinical Impression: Miscarriage, Pelvic pain Patient/Caregiver Discharge Instructions Education Materials: Understanding Miscarriage ... Print Language: Sudanese Stand Alone Forms: Lara Award Info., Patient Portal Info Letter
[2024-11-01] MEDS: HYDROcodone/APAP 5/325 TABLET 1 TAB PO (22:59)
[2024-11-01] MEDS: KETOROLAC INJ 30 MG/ML VIAL IM (23:00)
[2024-11-02] VITALS: RESP 18
== END 2024-11-02 00:35 | disposition home or self-care (01) ==
PROVIDERS: Nurse Practitioner Family; Emergency Provider Emergency Medicine; PCP Family Medicine
DX: O03.9 Complete or unspecified spontaneous abortion without complication (principal)
CPT/HCPCS: 36415; 76817; 80053; 81001; 84702; 85025; 86900; 86901; 99284; J1885; A9270